=== PATIENT | female | born 1930 | race Native Hawaiian/Other Pacific Islander ===

== ENCOUNTER 2016-12-09 00:32 | Inpatient (IN) | payer OTHER ==
[~2016-12-09] VITALS: Ht 165.1 cm; Wt 57.8 kg
[~2016-12-09 00:32] MED LIST: AMOX500C85 PO; CARDIZEM LA360 MG PO; DILTCAP36 PO; LISI10TA11 PO; LISI5TAB10 PO; METO100T37 PO; SIMV20TA2 PO
[2016-12-09 00:44] VITALS: BP 201/92; TEMP 98.3
[2016-12-09 01:33] LABS: PLATELET COUNT 339 K/uL (152-353)
[2016-12-09 01:43] LABS: POTASSIUM 3.6 mmol/L (3.6-5.2); SODIUM 135 mmol/L (136-145)
[2016-12-09 05:20] VITALS: BP 176/74; TEMP 98.9; Ht 165.1 cm; Wt 57.8 kg
[2016-12-09 08:00] VITALS: BP 156/72; TEMP 98.5
[2016-12-09 08:38] LABS: PLATELET COUNT 335 K/uL (152-353)
[2016-12-09 08:56] LABS: POTASSIUM 3.6 mmol/L (3.6-5.2); SODIUM 134 mmol/L (136-145)
[2016-12-09 12:00] VITALS: BP 162/76; TEMP 98.3
[2016-12-09 16:00] VITALS: BP 130/55; TEMP 98.1
[2016-12-09 19:54] VITALS: BP 102/42; TEMP 97.8
[2016-12-10 00:38] VITALS: BP 123/60; TEMP 98.5
[2016-12-10 04:56] LABS: PLATELET COUNT 290 K/uL (152-353)
[2016-12-10 05:05] LABS: POTASSIUM 3.6 mmol/L (3.6-5.2)
[2016-12-10 05:24] VITALS: BP 120/55; TEMP 98.1
[2016-12-10 08:24] VITALS: BP 143/64; TEMP 96.9
[2016-12-10 12:00] VITALS: BP 142/50; TEMP 97
[2016-12-10 16:00] VITALS: BP 152/62; TEMP 98
[2016-12-10 20:27] VITALS: BP 154/59; TEMP 98.3
[2016-12-11] VITALS: BP 141/57; TEMP 98
[2016-12-11 04:00] VITALS: BP 146/51; TEMP 98
[2016-12-11 06:05] LABS: POTASSIUM 3.7 mmol/L (3.6-5.2); SODIUM 137 mmol/L (136-145)
[2016-12-11 07:06] LABS: PLATELET COUNT 293 K/uL (152-353)
[2016-12-11 08:00] VITALS: BP 155/59; TEMP 98
[2016-12-11 12:00] VITALS: BP 141/44; TEMP 97.9
[2016-12-11 16:00] VITALS: BP 152/60; TEMP 98
[2016-12-11 20:00] VITALS: BP 162/66; TEMP 97.9
[2016-12-12] VITALS: BP 152/57; TEMP 98.1
[2016-12-12 04:00] VITALS: BP 156/76; TEMP 98.1
[2016-12-12 06:01] LABS: POTASSIUM 3.4 mmol/L (3.6-5.2); SODIUM 136 mmol/L (136-145)
[2016-12-12 06:18] LABS: PLATELET COUNT 312 K/uL (152-353)
[2016-12-12 08:00] VITALS: BP 185/63; TEMP 98.8
[2016-12-12 12:00] VITALS: BP 182/63; TEMP 98.6
[2016-12-12 16:00] VITALS: BP 180/58; TEMP 98.3
[2016-12-12 20:00] VITALS: BP 153/71; TEMP 99.3
[2016-12-13 00:26] VITALS: BP 157/69; TEMP 97.9
[2016-12-13 04:00] VITALS: BP 154/57; TEMP 98.2
[2016-12-13 04:26] LABS: PLATELET COUNT 346 K/uL (152-353)
[2016-12-13 04:33] LABS: POTASSIUM 3.1 mmol/L (3.6-5.2); SODIUM 135 mmol/L (136-145)
[2016-12-13 08:18] VITALS: BP 172/78; TEMP 98
[2016-12-13 12:00] VITALS: BP 161/57; TEMP 97.9
[2016-12-13 16:00] VITALS: BP 130/46; TEMP 98.9
== END 2016-12-13 19:05 | disposition home or self-care (01) | DRG 392 ==
LOC: ED 00:32 → MED/SURG 03:54
PROVIDERS: Emergency Medicine; Internal Medicine; ADMIT Specialist
DX: K59.09 Other constipation (principal); K92.1 Melena; K57.30 Diverticulosis of large intestine without perforation or abscess without bleeding; I48.91 Unspecified atrial fibrillation; F03.90 Unspecified dementia, unspecified severity, without behavioral disturbance, psychotic disturbance, mood disturbance, and anxiety; K64.8 Other hemorrhoids; Z86.73 Personal history of transient ischemic attack (TIA), and cerebral infarction without residual deficits
CPT/HCPCS: 36415; 80048; 80053; 81000; 82272; 84100; 84484; 85014; 85018; 85027; 85610; 86850; 86900; 86901; 99284; J1650; Q9963

== ENCOUNTER 2017-06-19 09:12 | Outpatient (CLI) | payer OTHER ==
[2017-06-19 09:28] LABS: PLATELET COUNT 358 K/uL (152-353)
== END 2017-06-19 21:13 | disposition home or self-care (01) ==
LOC: LABW 09:12
PROVIDERS: Physician Assistant
DX: R82.99 Other abnormal findings in urine (principal); I10 Essential (primary) hypertension; E78.4 Other hyperlipidemia; R94.6 Abnormal results of thyroid function studies; Z79.899 Other long term (current) drug therapy
CPT/HCPCS: 36415; 80061; 81000; 83036; 84443; 85027

== ENCOUNTER 2018-04-09 09:27 | Outpatient (CLI) | payer OTHER ==
[2018-04-09 09:46] LABS: PLATELET COUNT 327 K/uL (152-353)
== END 2018-04-09 22:11 | disposition home or self-care (01) ==
LOC: LABW 09:27
PROVIDERS: Internal Medicine
DX: I10 Essential (primary) hypertension (principal); N39.0 Urinary tract infection, site not specified
CPT/HCPCS: 36415; 80053; 80061; 84439; 84443; 85027; 87086; 87088

== ENCOUNTER 2019-06-11 13:49 | Emergency (ER) | payer OTHER ==
[~2019-06-11] VITALS: Ht 162.6 cm; Wt 59.0 kg
[2019-06-11 19:50] VITALS: BP 115/59; TEMP 98.5
== END 2019-06-11 19:50 | disposition short-term general hospital (02) ==
LOC: ED 13:49
PROC: 2W3LX1Z Immobilization of Right Lower Extremity using Splint (ICD-10-PCS; principal; 2019-06-11)
DX: S82.144A Nondisplaced bicondylar fracture of right tibia, initial encounter for closed fracture (principal); S82.831A Other fracture of upper and lower end of right fibula, initial encounter for closed fracture; S60.212A Contusion of left wrist, initial encounter; W18.39XA Other fall on same level, initial encounter; Y92.89 Other specified places as the place of occurrence of the external cause
CPT/HCPCS: 36415; 93005; 99283

== ENCOUNTER 2019-06-19 15:30 | Inpatient (IN) | payer OTHER ==
[~2019-06-19] VITALS: Ht 154.9 cm; Wt 65.8 kg
--- NOTE | 2019-06-19 15:15 | NUR ---
LATE ENTRY- PATIENT BROUGHT IN VIA STRETCHER FROM [facility]. PATIENT TRANSITIONED FROM STRETCHER TO BED WITH MAXIMUM ASSISTANCE. NOTIFIED OF PATIENTS ARRIVAL. PT THERAPY NOTIFIED WELL. 1540- IS THE ROOM ASSESSING PATIENT AND GETTING HISTORY FROM DAUGHTER AT THE BEDSIDE. PATIENT NOTED WITH A IMMBOLIZER TO THE RIGHT LOWER EXTERMITY. IMMOBILIZER REMOVED WELL DRESSING. NOTED TO RIGHT LOWER EXTREMITY BRUSING IN DIFFERENT STAGES OF HEALING WELL AN OPEN AREA APPROX. 5CM IN DIAMETER ON THE ANTERIOR ASPECT OF THE RIGHT LEG. NOTED WERE 32 BENIGNO INTACT WITH NO DRAINAGE OR ODOR PRESENT. 1800- PATIENT RIGHT LOWER EXTREMITY CLEANED AND DERMAGRAN APPLIED WITH 4X4 TEGADERM SECURED WITH SWATI FOLLOWED BY AMNA WRAP AND IMMOBILIZER. PATIENT TOLERATED WELL. 1815- PATIENT REPOSITIONED TO THE BEDSIDE AND WITH MAXIMUM ASSISTANCE X3 TO STAND UP WITH LEFT LEG AND UTILIZATION OF THE WALKER WELL. PATIENT UNABLE TO HOLD HERSELF UP IN STANDING POSITION BUT FOR A MINUTE. PATIENT PIVOTED TO THE BEDSIDE. PATIENT HAD A SMALL BROWN LOOSE BOWEL MOVEMENT. PATIENT ASSISTED TO STANDING POSITION BUT UNABLE TO FULL WEIGHT ON HER LEFT LEG AND NONE ON HER RIGHT LEG. PATIENT LIFTED AND PIOVTED TO THE BED AND REPOSITIONED UP WHILE IN [place] TO LIFT EASIER. PATIENT UNABLE TO ASSIST AT ALL. COMMODE.
[2019-06-19 16:00] VITALS: BP 140/58; BP 146/58; TEMP 97.8; TEMP 97.9
[2019-06-19 16:30] LABS: PLATELET COUNT 517 K/uL (152-353)
[2019-06-19 16:36] VITALS: BP 140/58; TEMP 97.9; BMI 22.0
[2019-06-19 17:14] LABS: POTASSIUM 4.2 mmol/L (3.6-5.2)
--- NOTE | 2019-06-20 02:10 | NUR ---
S/O 88 Y/O FEMAL WITH HX OF S/P ORIF TIBIAL PLATEAU FX, SEPSIS, UTI, HAS A PALPABLE BLADDER AND HAS ONLY VOIDED 100 CC IN SIX HOURS. A/ URINARY RETENTION P/ ORDER OBTAINED FROM ED MD TO INSERT NELSON CATH, 16 FR NELSON INSERTED WITH RETURN OF 1000 CC OF CLEAR YELLOW URINE. U/A OBTAINED AND SENT TO LAB. RECTAL SWAB SENT TO LAB. PT TOLERATED WELL. WILL DISCUSS WITH HOSPITALIST DR IZAGUIRRE IN AM
--- NOTE | 2019-06-20 15:46 | NUR ---
PATIENT DOES NOT VERBALIZE PAIN WELL. SHE WILL START GRIMACEING. YOU HAVE TO SHOW HER THE FACES PAIN SCALE TO GET AN ACCURATE PAIN ASSESMENT. I ALSO CHANGED HER RIGHT LOWER LEG DRESSING AND THE SKIN TEAR DRESSING ON HER UPPER RIGHT ARM
--- NOTE | 2019-06-20 17:59 | NUR ---
DIMITRI HAS A POOR APPITITE AND REQUIRES HELP FEEDING. MAKE SURE HER FOOD IS WELL CHOPPED. MAKE SURE YOU ARE PATIENT AND GIVE HER TIME. SHE EATS VERY SLOWLY.
[2019-06-20 20:00] VITALS: BP 105/52; TEMP 98.2
--- NOTE | 2019-06-21 15:16 | NUR ---
PATIENT IS HAVING TROUBLE EATING MODERATE AMOUNTS OF FOOD. THE PATIENT CAN ONLY TAKE A FEW BITES OF FOOD BEFORE BECOMEING FULL AND BELCHING. SHE ALSO GETS NAUSEATED. THIS IS NEW ONSET OF SYMPTOMS THAT BEGAN AFTER HER TIBIA SURGERY. I SUGGEST SCREENING FOR A HIATAL HERNIA OR ESOPHAGEAL STRICTURES.
[2019-06-21 19:35] VITALS: BP 145/56; TEMP 98.1
[2019-06-22 08:00] VITALS: BP 168/124; TEMP 97.3
--- NOTE | 2019-06-22 10:44 | NUR ---
0072 JAYA FROM [facility] CALLED AND STATED THAT PT'S BENIGNO COULD BE REMOVED TODAY. ASKED IF PT HAD A FOLLOW UP WITH [facility]TH[facility] PEDIC AT TIME OF DISCHARGE AND WAS INFORMED NOTHING WAS IN NOTES FROM DISCHARGE. INFORMED TO NOTIFY DR SELF THE [facility] FOR FOLLOW UP APPT .
--- NOTE | 2019-06-22 15:46 | NUR ---
1500 DRESSING CHANGE COMPLETED TO RIGHT KNEE. INCISION NOTED TO RT KNEE. ALL BENIGNO REMOVED PER MD ORDERS (FROM [facility]). NO ACTIVE BLEEDING OR DRAINAGE NOTED FROM INCISION SITE. OLD BRUISING NOTED AROUND INCISION SITE. NO OPEN AREAS/WOUNDS NOTED TO RT KNEE. INCISION SITE CLEANED AND AFTER BENIGNO REMOVED STERI STRIPS APPLIED. VASELINE GAUZE APLLIED TO HEALING "BLOOD BLISTER" PER DAUGHTER TO LOWER ANTERIOR KNEE AND SMALL PLACE TO ANTERIOR RIGHT LOWER (NO OPEN AREAS NOTED) PER DAUGHTERS REQUEST. KNEE WRAPPED WITH KURLEX AND AMNA WRAP AND IMMOBLIZER PLACED BACK ON PT. PT TOLERATED WELL.
[2019-06-22 20:00] VITALS: BP 143/63; TEMP 98.8
--- NOTE | 2019-06-22 23:45 | NUR ---
Patient is resting in bed with eyes opened. No acute distress noted. Call light is within reach, bed is in low postion, side rails x 3 are up for protection, and bed alarm is on. Will continue to monitor.
--- NOTE | 2019-06-23 04:55 | NUR ---
Patient is checked in on and found to be resting in bed with eyes closed. Respirations are even and unlabored, and no acute distress noted. Bed is in low position, call light is within reach, and bed alarm is on. Will continue to monitor.
--- NOTE | 2019-06-23 05:36 | NUR ---
Patient is checked in on and found to be resting in bed with eyes opened. She was assisted with drinking some ice water and she requested and was carried some apple juice. Patient drank all of her apple juice with no acute distress noted. Call light is within reach and bed alarm is on. Will continue to monitor.
[2019-06-24 08:00] VITALS: BP 145/93; TEMP 97.7
--- NOTE | 2019-06-24 11:31 | NUR ---
1000 PT BROUGHT BACK TO ROOM VIA WC PER PT. PT SAID THAT THE PT REFUSED TO PARTICIPATE IN THERAPY TODAY. PT TAKEN BACK TO ROOM PER THERAPY AND PALCED IN BED. WILL TAKE PT BACK TO THERAPY LATER TODAY
--- NOTE | 2019-06-24 15:18 | NUR ---
1500 THERAPY AT BEDSIDE TO TAKE PATIENT FOR THERAPY. PATIENT REFUSED THERAPY.
--- NOTE | 2019-06-24 16:56 | NUR ---
06/19/19-PRACTICAL MATTER STATEMENT MRS LYON IS A 88 YR OLD FEMALE ADMITTED WITH TIBIAL/FIBIAL FRACTURE, S/P SEPSIS. SHE IS REQUIRING MAXIMUM ASSISTANCE WITH ALL OF HER ADL'S. SHE HAS PREVIOUS COMOBIDITY'S THAT ALSO INTERFERE WITH HER HEALING AND STRENGTHENING OF HER MUSCLES. SHE REQUIRES 24 HOUR CUSTODIAL CARE WHICH IS A PRACTICAL MATTER AND CAN ONLY BE DONE ON AN INPATIENT BASIS BECAUSE SHE HAS NO ONE TO CARE FOR HER AT HER HOME. SHE LIVES ALONE AND USUALLY PROVIDES HER OWN ADL CARE. TAKE DOWN SORTER WILL CONTINUE TO OBSERVE AND ASSIST WITH ANY DISCHARGE PLANNING NEEDS.
[2019-06-24 20:07] VITALS: BP 124/60; TEMP 97.7
--- NOTE | 2019-06-24 22:49 | NUR ---
Patient took meds whole with no distress noted. Drank 3/4's of a Ensure plus shake mixed with ice cream. Disposable brief was changed d/t to being being wet. Radha care was provided and cream was administered to rectum. No acute distress is noted. Bed is in low position, side rails x 3 are up for protection, call light is within reach, and bed alarm is on. Will continue to monitor.
--- NOTE | 2019-06-25 02:55 | NUR ---
Round are made and patient is found to be resting in bed with eyes closed. Respirations are even and unlabored and no acute distress noted. Bed is in low position, side rails x 3 are up for protection, call light is within reach, and bed alarm is on. Will continue to monitor.
--- NOTE | 2019-06-25 06:24 | NUR ---
Patient's brief was changed and ashleigh-care provided. Bed linen was also changed at this time. Patient was carried a ensure supplemental shake and drank a small amount. She requested and drank some ice water also. No acute distress noted. Bed is in low position, side rails x 3 are up for protection, call light is within reach, and bed alarm is on. Will continue to monitor.
[2019-06-25 08:27] VITALS: BP 123/57; TEMP 98.1
--- NOTE | 2019-06-25 09:30 | NUR ---
IN ROOM FOR PATIENT BIMS INTERVIEW. UPON ENTRY OF ROOM PATIENTS DAUGHTER WAS FEEDING HER A MECHANICAL SOFT DIET. PAITENT BEGAN TO CHOKE WHEN TRYING TO SWALLOW HER FOOD. PATIENT ABLE TO CLEAR THROAT AND BIMS INTERVIEW WAS COMPLETED. DAUGHTER AT BS AND NO COMPLAINTS/NEEDS VOICED AT THIS TIME.
[2019-06-25 20:00] VITALS: BP 154/84; TEMP 98
--- NOTE | 2019-06-25 21:00 | NUR ---
Patient is resting in bed with eyes opened. Voiced c/o of pain to right lower ext. and prn, Tylenol, 650 mg, po was given. Patient was assisted with drinking a nutritional supplemental shake mixed with ice cream and was able tg drink all of it with no distress noted. Patient stated, "that she did not have to use the bathroom at this time but that she would use her call light for assistance with being put on the bed pain, when she did did". Surgical incision wound to lower right ext. was cleaned with normal saline and covered with vaseline guaze, 4 x 4, wrapped with allie, and secured with tape. No drainage or redness or drainage was noted. Patient tolerated dressing change with no distress noted. Patient was also assisted with repositioning at this time and bilateral feet are elevated on a pillow and rolled blanket for support and to prevent bilateral feet from dropping downward. Daughter is at bed, bed is in low position, side rails x 3 are up for support, call light is within reach, and bed alarm is on. Will continue to monitor.
--- NOTE | 2019-06-26 02:30 | NUR ---
Patient used call light and requested assistance with being placed on bedpain to urinate. Patient was placed on bedpan and left for a few minute to be able to urinate. Call light is within reach. Will continue to monitor closely. 0240- Patient was checked in on and stated, "that she was finished using the bedpan". Bedpan was removed, brief was changed, with ashleigh-care provided. Patieant was assisted with repositioning for comfort, and bilateral lower ext. and feet elevated and supported to prevent feet from dropping. No acute distress noted in patient. Bed is in low position, side rails x 3 up for protection, call light is within reach and bed alarm is on. Will continue to monitor.
--- NOTE | 2019-06-26 05:30 | NUR ---
Patient was checked in on by this nurse and she stated, "that she had to use the bathroom". She was assisted with being placed on the bedpan and then covered with was left for a few minutes alone to be able to use it. Call light is within reach and bed alarm is on. 0540- Patient checked back in on and she stated, "that she was finished using the bedpan". Bedpan was removed from underneath pt and pericare provided and new brief was placed on pt. A supplemental shake mixed with icecream was also carried to patient and she was assisted with drinking it. Patient was also assisted with positioning and bilateral lower extremities are elevated with rolled blanket and bilateral feet supported with pillows to prevent feet from dropping. No acute distress noted. Bed is in low position, side rails x 3 up for protection, call light within reach, and bed alarm is on. Respirations are even and unlabored, and no acute distress noted. Will continue to monitor.
--- NOTE | 2019-06-26 09:15 | NUR ---
PT IN BED RESTING QUIETLY WITH FAMILY AT BEDSIDE, DRSG CHANGED TO R LOWER LEG AT THIS TIME. PT ACCEPTED MEDS WITHOUT DIFFICULTY, NAD NOTED,RESP. EVEN AND UNLABORED, CONSUMMED 100% OF PUUDING CUP AND FEW SIPS OF WATER.
--- NOTE | 2019-06-26 09:57 | NUR ---
GAVE PATIENT PARTIAL DOSE OF LEVOQUIN ORDERED. CUT IN HALF 500MG PILL. WASTED PARTIAL DOSE.
--- NOTE | 2019-06-26 15:15 | NUR ---
PATIENT ASKED FOR SOME MEDICINE BECAUSE SHE HAD MINOR LEG PAIN. TYHUSSAIN. WILL REASSES IN 30 MINS
--- NOTE | 2019-06-26 15:28 | NUR ---
PATIENT HAD A BOWL MOVEMENT AND VOIDED AFTER LUNCH. PT CHANGED HER .
--- NOTE | 2019-06-26 15:33 | NUR ---
SPEECH THERAPY PREFORMED A MODIFIED BARIUM SWOLLOW TEST. PATIENT DID NOT ASPIRATE. WILL CONTINUE TO MONITOR FOR ASPIRATION. DAUGHTER NOTIFIED OF THE RESULTS
[2019-06-26 20:00] VITALS: BP 156/81; TEMP 98.2
[2019-06-27 08:00] VITALS: BP 153/58; TEMP 98.5
--- NOTE | 2019-06-27 10:36 | NUR ---
PHYSICAL THERAPY BROUGHT PATIENT BACK AND ADVISED THAT PATIENT HAD A SMALL BRUISED AREA TO LEFT POSTERIOR SHOULDER.
[2019-06-27 19:55] VITALS: BP 152/59; TEMP 98.3
[2019-06-28 05:29] VITALS: BP 119/73; TEMP 98.6; BMI 39.1
[2019-06-28 08:00] VITALS: BP 167/72; TEMP 98.1
--- NOTE | 2019-06-28 09:12 | NUR ---
0830 INTO GIVE PT AM MEDS AND OBTAIN AM V/S. PT TOOK MEDS WHOLE ONE AT A TIME. PT TOLERATED WELL. PT DRANK SOME ORANGE JUICE AND WATER AT THIS TIME. NAD NOTED.
--- NOTE | 2019-06-28 18:09 | NUR ---
1809 PT C/O MILD PAIN TO RLE. GAVE PT ONE TAB OF PAIN MED. PT TOLERATED WELL.
[2019-06-28 20:00] VITALS: BP 139/57; TEMP 98.3
[2019-06-29 08:26] VITALS: BP 161/58; TEMP 98.3
[2019-06-29 20:00] VITALS: BP 151/52; TEMP 98.5
--- NOTE | 2019-06-30 11:50 | NUR ---
@ 1122... Pt vomited sm amt brownish gastric material. Pt states "it was a relief". Pt in NAD noted. Zofran 4 mg tab po given as ordered PRN.
--- NOTE | 2019-06-30 12:55 | NUR ---
Patient c/o of leg pain, administered Percocet per physician orders at this time. Patient tolerated well. NAD noted at this time.
--- NOTE | 2019-06-30 15:14 | NUR ---
PT RESTING IN BED QUIETLY WITH EYES CLOSED, NAD NOTED, NO S/SX OF PAIN OR DISCOMFORTS NOTED AT THIS TIME. NO FURTHER NAUSEA OR VOMITING NOTED.
[2019-06-30 20:00] VITALS: BP 120/47; TEMP 98.3
[2019-07-01 08:00] VITALS: BP 146/59; TEMP 98.2
[2019-07-01 20:00] VITALS: BP 163/55; TEMP 97.7
--- NOTE | 2019-07-02 13:19 | NUR ---
1100 BINA DAVID INTO PT ROOM TO ADRESS DAUGHTERS CONCERN. PT DAUGHTER NOT IN ROOM 1320 BINA DAVID BACK IN PT ROOM TO SPEAK WITH DAUGHTER. PT DAUGHTER STILL NOT IN ROOM 1324 BINA DAVID INTO SPEAK WITH PT DAUGHTER.
--- NOTE | 2019-07-02 15:38 | NUR ---
1400 DR WRIGHT IN ROOM SPEAKING WITH DAUGHTER AT THIS TIME. DAUGHTER INFORMING MD OF HER CONCERN WITH HER MOTHER'S DECREASE APPETITE AND "PROBLEMS SWALLOWING" AND "VOMITING". NO VOMITING NOTED PER NURSING STAFF THIS SHIFT. PT TAKES MEDS WHOLE WOTHOUT ANY PROBLEMS. PT WILL DRINK ENSURE AND WATER WITHOUT ANY PROBLMES NOTED. PT IS SITTING UP IN BED AWAKE AND ALERT. PT DOES NOT VERBALIZE ANY CO AT THIS TIME. PT DOES HAVE PERIODS OF CONFUSION/DEMENTIA. DR WRIGHT REQUESTED TO CHECK TO SEE IF PT COULD HAVE EGD WHILE IN SWINGBED. KERRY IN UR NOTIFIED. WAITING FURTHER ORDERS.
--- NOTE | 2019-07-02 15:51 | NUR ---
1300 PT REC'D BEDBATH AND LINEN CHANGE PER PCT'S X 2 ASSIST. DAUGHTER AT BS. NO PROBLMES NTOED.
[2019-07-02 15:56] LABS: PLATELET COUNT 687 K/uL (152-353)
[2019-07-02 15:57] LABS: POTASSIUM 4.3 mmol/L (3.6-5.2)
--- NOTE | 2019-07-02 16:05 | NUR ---
1600 DRESSING CHANGE TO RT LOWER EXT REMOVED. INCISION TO RT LOWER EXT CLEAN AND DRY. STERI STRIPS INTACT. NO BLEEDING OR DRAINAGE NOTED. NO REDNESS NOTED. TELFA APPLIED WRAPPED WITH CLING. PT TOELRATED DRESSING CHANGE WELL.
--- NOTE | 2019-07-02 19:14 | NUR ---
1600 NOTIFIED PER KERRY IN UR THAT PT COULD HAVE EGD OUT PT PROCEDURE WHILE IN SWINGBED. WENT TO INFORM PT'S DAUGHTER AMANDA, SHE WAS NOT IN ROOM AT THIS TIME. WILL CHECK AT LATER TIME TO SEE IF SHE RETURNS SO NEW ORDERS CAN BE EXPLAINED. DUE TO NO SURGERY AVAILABILITY ON 07-03-19 PT WILL BE ADDED TO SCHEDULE FOR 07-06-19. WILL INFORM SURGERY IN AM OF PROCEDURE. ALL OR GONE AT THIS TIME.
[2019-07-02 20:00] VITALS: BP 147/52; TEMP 98.8
--- NOTE | 2019-07-03 15:38 | NUR ---
DR SANTANA NOTIFIED OF CONSULT FOR EGD.
[2019-07-03 20:00] VITALS: BP 142/46; TEMP 98.2
--- NOTE | 2019-07-04 19:50 | NUR ---
DAUGHTER REQUEST THAT MOTHERS DIET BE CHANGED BACK TO MECHANICLE DIET. WILL NOTIFY IN AM OF REWUEST
[2019-07-04 20:00] VITALS: BP 164/49; TEMP 98.3
[2019-07-05 20:00] VITALS: BP 154/68; TEMP 98.2
[2019-07-06 08:00] VITALS: BP 174/50; TEMP 97.8
--- NOTE | 2019-07-06 08:54 | NUR ---
[address] SANTANA ON PT EGD. DR. SANTANA STATED "YES SOMEONE TALKED TO ME BUT I THOUGHT IT WAS SUPPOSE TO BE ON THE 4TH. BUT SINCE THERE IS SOME QUESTIONING ON WHETHER OR NOT PT HAS BEEN DRINKING THEN WE CAN TRY AND DO IT TOMORROW. I AM OUT OF TOWN TODAY." NOTIFIED OR. OR INFORMED ME THEY WOULD GET BACK WITH AFTER TALKING TO ANESTHESIA.
--- NOTE | 2019-07-06 10:01 | NUR ---
0955 IN TO SEE PT AND GIVE PT AM MEDS. PT AWAKE AND ALERT WATCHING TV. NAD NOTED. PT TOLERATED MORNING MEDICATING WITHOUT DIFFICULTY SWALLOWING.
--- NOTE | 2019-07-06 11:08 | NUR ---
1100 IN TO SPEAK WITH PT DAUGHTER AND UPDATE HER ON STATUS OF PT'S EGD. INFORMED PT DAUGHTER THAT DR. SANTANA WAS OUT OF TOWN AND IF EVERYTHING IS SCHEDULED RIGHT WITH ANESTHESIA THEN PT WILL HAVE PROCEDURE DONE TOMORROW MORNING 07/07/19. PENDING ANSWER FROM ANESTHESIA AT THIS TIME.
--- NOTE | 2019-07-06 16:18 | NUR ---
1300 IN TO CHECK ON PT. OT AT PT BEDSIDE. PT IS CURRENTLY FEEDING HERSELF WITH NO DIFFICULTY. PT DAUGHTER IS CURRENTLY NOT IN THE ROOM AT THIS TIME. 1400 PCT'S REPORT PT ATE 50% OF HER LUNCH WITHOUT DIFFICULTY.
[2019-07-06 20:00] VITALS: BP 141/54; TEMP 98.3
--- NOTE | 2019-07-06 23:04 | NUR ---
Pt took meds whole with no distress noted. She 240 ml of ensure plus mixed with ice cream. Pt is being checked and changed regularly and prn pericare provided. Pt is also being turned and repositioned regularly. Sx incision was cleansed with ns, covered with telfa, abd pad, and secured with paper tape. No redness or drainage noted from incision, and steri-strips are dry and intact. Small clear blister noted to right side of face, and small, closed area on left side of neck. Pt also has several small red areas on back. Will continue to monitor. Bed is in low position, side rails x 3 are up for protection, bed alarm is on, and call light is within reach, with cotton ball tape on nurse button so that pt can feel it d/t pt having limited vision. Will continue to monitor.
[2019-07-07 08:00] VITALS: BP 156/56; TEMP 98.1
[2019-07-07 19:59] VITALS: BP 157/83; TEMP 98.2
--- NOTE | 2019-07-07 23:16 | NUR ---
Pt has three small clear blisters noted to right side of face, and small red, crusted area on left side of neck. Will continue to monitor and will report to oncoming day shift nurse to report areas of concern to physician. Pt voiced c/o of having pain in abdomen earlier and was administered prn, Percocet 5/325, po. Took po med with no acute distress noted, and drank 120 cc of ensure mixed with icecream. Pt is being checked and changed frequently, with prn pericare provided. Bilateral feet are elevated on pillows. Bed is in low position, side rails x 3 are up for protection, call light is within reach. Will continue to monitor.
[2019-07-08] VITALS: BP 143/55; TEMP 97.9
[2019-07-08 08:00] VITALS: BP 152/48; TEMP 98.4
[2019-07-08 20:31] VITALS: BP 164/55; TEMP 98.3
--- NOTE | 2019-07-09 08:01 | NUR ---
PATIENT IS RESTING WITH EYES CLOSED. PATIENT EASILY ROUSES WHEN CALLING HER NAME. SHIFT ASSESSMENT COMPLETED AT THIS TIME.
[2019-07-09 08:17] VITALS: BP 170/58; TEMP 98.1
--- NOTE | 2019-07-09 09:30 | NUR ---
PATIENT TAKEN VIA MED/SURG BED TO THE OR FOR EGD. PATIENT IS ALERT AT THIS TIME.
== END 2019-07-09 17:10 | disposition home health service (06) | DRG 556 ==
LOC: MED/SURG 15:30
PROVIDERS: ADMIT Family Medicine
DX: M62.81 Muscle weakness (generalized) (principal); N39.0 Urinary tract infection, site not specified; R26.89 Other abnormalities of gait and mobility; R62.7 Adult failure to thrive; R13.19 Other dysphagia; E78.49 Other hyperlipidemia; I48.91 Unspecified atrial fibrillation; B96.5 Pseudomonas (aeruginosa) (mallei) (pseudomallei) as the cause of diseases classified elsewhere; I10 Essential (primary) hypertension; H40.89 Other specified glaucoma; Z47.89 Encounter for other orthopedic aftercare; E03.8 Other specified hypothyroidism
CPT/HCPCS: 36415; 80048; 80053; 81000; 84295; 85027; 87077; 87081; 87086; 87088; 87186; J1650

== ENCOUNTER 2019-07-09 09:46 | Day surgery (SDC) | payer OTHER ==
[~2019-07-09] VITALS: Ht 30.5 cm; Wt 0.5 kg
== END 2019-07-09 10:45 | disposition home or self-care (01) ==
LOC: OR 09:46
PROC: 0DB68ZZ Excision of Stomach, Via Natural or Artificial Opening Endoscopic (ICD-10-PCS; principal; 2019-07-09)
DX: K29.50 Unspecified chronic gastritis without bleeding (principal); B96.81 Helicobacter pylori [H. pylori] as the cause of diseases classified elsewhere; R13.19 Other dysphagia
CPT/HCPCS: J2001; J2405; J2704; J3490

== ENCOUNTER 2019-08-31 11:14 | Outpatient (CLI) | payer OTHER ==
[2019-08-31 11:49] LABS: PLATELET COUNT 443 K/uL (152-353)
[2019-08-31 12:07] LABS: POTASSIUM 3.3 mmol/L (3.6-5.2)
== END 2019-08-31 20:15 | disposition home or self-care (01) ==
LOC: LAB 11:14
PROVIDERS: Internal Medicine
DX: I48.0 Paroxysmal atrial fibrillation (principal); I10 Essential (primary) hypertension; E53.8 Deficiency of other specified B group vitamins; E55.9 Vitamin D deficiency, unspecified
CPT/HCPCS: 80053; 80061; 81000; 82306; 82607; 84439; 84443; 85027

== ENCOUNTER 2019-09-16 10:47 | Outpatient (CLI) | payer OTHER | END 2019-09-16 19:27 | disposition home or self-care (01) | LOC: LAB 10:47 | DX: R46.89 Other symptoms and signs involving appearance and behavior (principal) | CPT/HCPCS: 81000 ==